=== PATIENT | male | born 1945 | race Caucasian/White ===

== ENCOUNTER 2017-08-19 06:07 | Emergency (ER) | payer MEDICARE, OTHER ==
[2017-08-19 06:40] LABS: #Basophils 0.1 thou/uL (0.0-0.2); #Eosinphils 0.2 thou/uL (0.0-0.7); #Lymphocytes 2.6 thou/uL (1.20-3.40); #Monocytes 0.9 thou/uL (0.11-0.59); #Neutrophils 4.2 thou/uL (1.40-6.50); %Basophils 0.9 % (0.0-1.0); %Eosinophils 2.5 % (0.0-10.0); %Monocytes 11.7 % (0.0-10.0); Hematocrit 54.2 % (42.0-52.0); Mean Platelet Volume 8.1 fL (7.4-10.4)
[2017-08-19 06:56] LABS: Anion Gap 12 mmol/L (10-20); BUN (Urea Nitrogen) 20 mg/dL (8.4-25.7); Calc. Creatinine Clearance 0 mL/min (70-130); Carbon Dioxide 25 mmol/L (23-31); Chloride 104 mmol/L (98-107); Estimated GFR-MDRD 72
[2017-08-19 07:16] LABS: Bilirubin Small (Negative); Blood, Urine Large (Negative); Glucose, Urine (Dipstick) Negative (Negative); Ketone, Urine Negative (Negative); Nitrite Negative (Negative); Protein, Urine (Dipstick) 30 mg/dL (Neg-Trace); Urobilinogen 0.2 mg/dL (0.2-1.0)
[2017-08-19 07:29] LABS: RBC/HPF GREATER THAN 50-TNTC HPF (0-3)
[2017-08-19 07:30] LABS: Bacteria/HPF 1+ HPF (None Seen); Hyaline Casts/LPF 0-3 HYALINE CAST LPF (0-3 Hyaline); WBC/HPF 0-3 HPF (0-3)
[2017-08-19] MEDS ORDERED: Nitrofurantoin Monohyd/M-Cryst 100 MG CAP PO SCH (07:45)
== END 2017-08-19 08:15 | disposition home or self-care (01) ==
LOC: ERS 06:07
DX: N39.0 Urinary tract infection, site not specified (principal); I10 Essential (primary) hypertension; E78.5 Hyperlipidemia, unspecified; M19.90 Unspecified osteoarthritis, unspecified site; Z79.82 Long term (current) use of aspirin; Z79.899 Other long term (current) drug therapy; Z87.891 Personal history of nicotine dependence
CPT/HCPCS: 36415; 80048; 81003; 81015; 85025; 87086; 99284

== ENCOUNTER 2017-10-03 10:03 | Outpatient (CLI) | payer MEDICARE, OTHER ==
[2017-10-03 11:19] LABS: Anion Gap 9 mmol/L (10-20); BUN (Urea Nitrogen) 17 mg/dL (8.4-25.7); Calc. Creatinine Clearance 0 mL/min (70-130); Calcium 9.6 mg/dL (7.8-10.44); Carbon Dioxide 28 mmol/L (23-31); Chloride 104 mmol/L (98-107); Estimated GFR-MDRD 78
[2017-10-03 11:23] LABS: Hematocrit 50.5 % (42.0-52.0); Mean Platelet Volume 8.4 fL (7.4-10.4); Red Blood Cell (RBC) Count 5.19 mill/uL (4.70-6.10); White Blood Cell (WBC) Count 8.2 thou/uL (4.8-10.8)
[2017-10-03 11:25] LABS: PTT 29.8 SEC (22.9-36.1); Prothrombin Time 13.4 SEC (12.0-14.7)
== END 2017-10-03 10:04 | disposition home or self-care (01) ==
LOC: LABBT 10:03
PROVIDERS: ATTEND Urology
DX: Z01.812 Encounter for preprocedural laboratory examination (principal); D49.4 Neoplasm of unspecified behavior of bladder
CPT/HCPCS: 80048; 85027; 85610; 85730

== ENCOUNTER 2017-10-07 05:54 | Day surgery (SDC) | payer MEDICARE, OTHER ==
[2017-10-03 10:23] VITALS: BMI 28.8
[2017-10-07] MEDS ORDERED: Fentanyl 100 MCG/2 ML VIAL ONE ×2 (06:25→11:57)
[2017-10-07] MEDS ORDERED: CEFAZOLIN/Water 2 GM/20 ML SYRINGE ONE (06:39)
[2017-10-07] MEDS ORDERED: PHENYLEPHRINE-NS 100 MCG/ML 10 ML SYRINGE ONE (08:46)
[2017-10-07] MEDS ORDERED: Propofol 200 MG/20 ML VIAL ONE (08:46)
[2017-10-07] MEDS ORDERED: Ondansetron HCl/PF 4 MG/2 ML Vial ONE (08:46)
[2017-10-07] MEDS ORDERED: Glycopyrrolate 0.2 MG/ML 5 ML SYRINGE ONE (08:46)
[2017-10-07] MEDS ORDERED: Lidocaine 1% PF 5 ML VIAL ONE (08:46)
[2017-10-07] MEDS ORDERED: cefTRIAXone\\ROCEPHIN 2 GM in Sodium Chloride 0.9% 100 ML IVPB ONE (10:15)
[2017-10-07] MEDS ORDERED: Iothalamate Meglumine 60% 50 ML VIAL FS ONE (10:29)
[2017-10-07] MEDS ORDERED: mitoMYcin 40 MG, Mitomycin 10 MG in Sodium Chloride 0.9% 50 ML I-VESIC SCH (11:00)
--- NOTE | 2017-10-07 13:07 | OP ---
DATE OF PROCEDURE: 10/07/2017 PREOPERATIVE DIAGNOSIS: Bladder tumors. hematuria. POSTOPERATIVE DIAGNOSIS: Bladder tumors, hematuria. PROCEDURE PERFORMED: Cysto, bilateral retrograde, TURBT. SURGEON: Dr. Guero Molina ANESTHETIC: General. ESTIMATED BLOOD LOSS: Minimal. FINDINGS: There were two 2 cm bladder tumors on the right wall adjacent to each other. There was a small papillary tumor lateral to the left ureteral orifice and another one lateral to the right urete ral orifices. These were not resected, but were cauterized. Path sent was superficial tumors right wall, the retrograde studies showed no persisting filling defect, some air bubbles on the left side a nd no evidence of obstruction to either ureter or tumor in either ureter, we did place 50 mg of mitom ycin C in 50 mL of normal saline at the end of the case and it was left in for about 30-40 minutes an d drained in recovery room. OPERATIVE TECHNIQUE: After obtaining written and verbal consent from the patient after receiving IV antibiotics, he was taken to the operating suite. He was placed in the supine position on the [facility] ent table. PlexiPulses were placed on his lower extremities and turned on. He was given a general a nesthetic, oral intubation. He was placed in the dorsal lithotomy position and sterilely prepped and draped. Cystoscopy was performed with a 22-Sudanese sheath. This was well lubricated and passed unde r direct vision through the male urethra into the urinary bladder with the aid of a 30-degree lens an d video camera and monitor. There was no evidence of urethral stricture disease. He is status post radical prostatectomy. Bladder was examined with a 30 and 70 degree lens with the findings above. A cone tip catheter 5 Sudanese was brought in, fluoroscopy unit was used and we did retrogrades to the right and then to the left ureter and upper collecting system by injecting contrast in a retrograde m jimmy, about 12 mL in each side and taking drainage. We then went ahead and removed these instrument s and passed a 24-Sudanese resectoscope sheath with the visual obturator and a 30 degree lens into the urinary bladder, used an OpenZine resectoscope with a gyrus generator and a bladder tumor loop resect ed the tumor down to the level of the wall, elliked out these, deep and then sent these off, cauteriz ed these areas and then cauterized the 2 small remaining tumors. The bladder was emptied. A Suazo c atheter was placed and mitomycin was placed, after it had been drained it was plugged. He was taken to the recovery room with it plugged. He was awakened and extubated and taken by stretcher to the re covery room.
--- NOTE | 2017-10-07 16:30 | RAD ---
RETROGRADE PYELOGRAM 3 VIEWS: Date: 10/07/17 HISTORY: 72-year-old male with hematuria. FINDINGS: Three fluoroscopic spot images obtained with C-arm. The first two images demonstrate contrast opacify ing nondilated left renal collecting system. The mid and lower pole calices are incompletely opacifie d. The final image demonstrates faint contrast in a nondilated right renal pelvis, but the calices ar e outside of the field of view. No images of the mid and lower ureters are available. IMPRESSION: 1. Incomplete visualization of bilateral renal collecting systems, especially the right. 2. No hydronephrosis. POS: [facility]
== END 2017-10-07 14:48 | disposition home or self-care (01) ==
LOC: SDC 05:54
PROVIDERS: ATTEND Urology
PROC: 0TBB8ZX Excision of Bladder, Via Natural or Artificial Opening Endoscopic, Diagnostic (ICD-10-PCS; principal; 2017-10-07)
PROC: 0TPB8JZ Removal of Synthetic Substitute from Bladder, Via Natural or Artificial Opening Endoscopic (ICD-10-PCS; 2017-10-07)
DX: C67.9 Malignant neoplasm of bladder, unspecified (principal); Z90.49 Acquired absence of other specified parts of digestive tract; Z98.890 Other specified postprocedural states; Z95.5 Presence of coronary angioplasty implant and graft
CPT/HCPCS: 52234; 74420; 88307; 96374; C1758; J9280 ×2; J0696; J2001; J2405; J2704; J3010; J7050; Q9961

== ENCOUNTER 2018-01-28 09:09 | Outpatient (CLI) | payer MEDICARE, OTHER ==
[2018-01-28 10:36] LABS: Hemoglobin 16.8 g/dL (14.0-18.0); Mean Corpuscular HGB CONC 33.2 g/dL (32.0-36.0); Mean Corpuscular Hemoglobin 32.2 pg (27.0-31.0); Mean Corpuscular Volume 97.1 fl (80.0-94.0); Platelet Count 240 thou/uL (130-400); RBC Distribution Width 11.6 % (11.5-14.5); White Blood Cell (WBC) Count 8.4 thou/uL (4.8-10.8)
[2018-01-28 11:46] LABS: Prothrombin Time 13.2 SEC (12.0-14.7)
[2018-01-28 11:47] LABS: PTT 25.3 SEC (22.9-36.1)
== END 2018-01-28 09:10 | disposition home or self-care (01) ==
LOC: LABBT 09:09
PROVIDERS: ATTEND Urology
DX: Z01.812 Encounter for preprocedural laboratory examination (principal); C67.9 Malignant neoplasm of bladder, unspecified
CPT/HCPCS: 85027; 85610; 85730

== ENCOUNTER 2018-02-03 07:43 | Day surgery (SDC) | payer MEDICARE, OTHER ==
[2018-01-28 09:46] VITALS: BMI 29.5
[2018-02-03] MEDS ORDERED: CEFAZOLIN/Water 2 GM/20 ML SYRINGE ONE (08:40)
[2018-02-03] MEDS ORDERED: Iothalamate Meglumine 60% 50 ML VIAL FS ONE (10:25)
[2018-02-03] MEDS ORDERED: Fentanyl 100 MCG/2 ML VIAL ONE (10:31)
[2018-02-03] MEDS ORDERED: Famotidine/PF 20 mg/2ml Vial ONE (10:31)
--- NOTE | 2018-02-03 11:40 | OP ---
DATE OF PROCEDURE: 02/03/2018 PREOPERATIVE DIAGNOSES: History of TCC. POSTOPERATIVE DIAGNOSIS: History of TCC. PROCEDURE PERFORMED: Cysto, bilateral retrograde and pyelograms and bladder biopsy. SURGEON: Dr. Guero Molina ANESTHETIC: General. ESTIMATED BLOOD LOSS: Minimal. Biopsies taken from the old tumor site as well as random biopsies. Retrograde study showed no eviden ce of filling defects or abnormality. There is no obvious bladder tumor seen. OPERATIVE TECHNIQUE: After obtaining written and verbal consent from the patient after receiving IV antibiotics, he was taken to the operating suite. He was placed in supine position on the treatment table. PlexiPulses placed on his lower extremities and turned on. He was given a general anesthetic , oral obturator intubation which was then switched to oral intubation. He has a little bit of troub le with coughing from this. He was then placed in dorsal lithotomy position, sterilely prepped and d raped. Cystoscopy was performed with a 22-Bhutanese sheath. This was well lubricated, passed under dir ect vision through the male urethra into the urinary bladder with aid of a 30-degree lens and video c amera and monitor. The bladder was filled and emptied a number of times and examined both 30 and 70 lens. A 5 Bhutanese Pollack catheter was flushed with contrast, a juice tester KUB was taken with fluoroscopy unit. Left retrograde and right retrograde studies were done by injecting about 10-12 mL of contrast up both sides as fluoroscopic images were obtained and then saved. At the end of the procedure penny nagromy films were done also. They drained well. The bladder was then biopsied using cold cup biopsy f orceps and then cauterized with a Bugbee electrode of the biopsy sites included the tumor site from t he right wall as well as some random bladder biopsy sites. There was no evidence of recurrent bladde r tumor. At the end of the procedure the instruments were removed. Suazo catheter was not placed. He was awakened, extubated, and taken by stretcher to the recovery room.
--- NOTE | 2018-02-03 11:47 | RAD ---
RETROGRADE IVP: COMPARISON: 10/07/17. HISTORY: Hematuria. FINDINGS/IMPRESSION: A retrograde IVP was submitted for interpretation. Limited fluorosocpic images were provided. A special education educational assistant image shows no calcifications overlying either renal collecting system. There are surgical c lips in the pelvis. Contrast is eventually seen in both renal collecting systems without filling def ects. No hydronephrosis is seen. POS: [facility]
[2018-02-03] MEDS ORDERED: PROPOFOL 200 MG/20 ML VIAL ONE (15:50)
[2018-02-03] MEDS ORDERED: Lidocaine 1% PF 5 ML VIAL ONE (15:50)
[2018-02-03] MEDS ORDERED: Glycopyrrolate 0.2 MG/ML 5 ML SYRINGE ONE (15:50)
[2018-02-03] MEDS ORDERED: Ondansetron HCl/PF 4 MG/2 ML Vial ONE (15:50)
== END 2018-02-03 12:40 | disposition home or self-care (01) ==
LOC: SDC 07:43
PROVIDERS: ATTEND Urology
PROC: 0TBB8ZX Excision of Bladder, Via Natural or Artificial Opening Endoscopic, Diagnostic (ICD-10-PCS; principal; 2018-02-03)
DX: N30.20 Other chronic cystitis without hematuria (principal); Z85.51 Personal history of malignant neoplasm of bladder; Z90.79 Acquired absence of other genital organ(s); Z98.890 Other specified postprocedural states
CPT/HCPCS: 74420; 88305; C1758; J2001; J2405; J2704; J3010; Q9961; S0028

== ENCOUNTER 2018-10-11 09:35 | Emergency (ER) | payer MEDICARE, OTHER ==
--- NOTE | 2018-10-11 11:11 | RAD ---
PA AND LATERAL VIEWS OF CHEST: Date: 10/11/18 HISTORY: Cough, fever. FINDINGS: The heart size is borderline. There is evidence of old granulomatous disease. No focal areas of conso lidation, pneumothoraces, or pleural effusions seen. There are degenerative changes in the spine. IMPRESSION: No radiographic evidence of acute cardiopulmonary process. POS: [facility]
== END 2018-10-11 11:38 | disposition home or self-care (01) ==
LOC: SCSER 09:35
DX: J32.9 Chronic sinusitis, unspecified (principal); M10.9 Gout, unspecified; E78.2 Mixed hyperlipidemia; I10 Essential (primary) hypertension; Z79.899 Other long term (current) drug therapy; Z79.82 Long term (current) use of aspirin
CPT/HCPCS: 71046; 87804

== ENCOUNTER 2020-03-04 08:55 | Outpatient (CLI) | payer MEDICARE, OTHER ==
[2020-03-04] MEDS ORDERED: Magnevist 469MG/ML 20 ML VIAL ONE (10:12)
--- NOTE | 2020-03-04 14:43 | MRI ---
MRI OF THE LUMBAR SPINE WITH AND WITHOUT IV CONTRAST : INDICATION: History of low back pain with radiculopathy affecting the left lower extremity. CONTRAST: 20 cc of MultiHance. COMPARISON: Prior MRI of the lumbar spine dated 04/07/2012. FINDINGS: There is postprocedural change of laminectomies at L4-5. The visualized retroperitoneum appears within normal limits. Bone marrow signal intensity appears wi thin normal limits. There is mild aneurysmal dilatation of the infrarenal abdominal aorta measuring up to 3.7 cm. There is aneurysmal dilatation of the left common iliac artery measuring up to 2.3 cm. The conus is seen to terminate at approximately L1. There is very subtle grade I anterolisthesis of L4 on L5 which is stable-appearing. At L5-S1, there is a broad-based disk bulge with facet hypertrophy and loss of disk space height adrián cing mild bilateral neural foraminal narrowing which appears stable to the prior exam. At L4-5, there is a residual broad-based bulge with facet hypertrophy inducing moderate to severe ko tral canal narrowing. This is mildly improved from the comparison examination. There is moderate ri ght and severe left neural foraminal narrowing that has progressed from the prior examination. There is a new left foraminal disk protrusion that is inducing the more severe neural foraminal narrowing now present, best seen on image 22 of series 5 measuring 1.4 cm. At L3-4, there is a broad-based bulge with facet hypertrophy and ligamentum flavum hypertrophy induci ng mild central canal narrowing. This has progressed from the prior examination due to facet hypertr ophy and the mild broad-based bulge. There is mild neural foraminal narrowing bilaterally which has mildly progressed. At L2-3, there is a broad-based bulge with facet hypertrophy inducing mild central canal and mild alejandrina ateral neural foraminal narrowing which has mildly progressed from the prior exam. At L1-2, there is a broad-based bulge with facet hypertrophy but no appreciable central canal or neur al foraminal narrowing. At LT12-L1, there is no appreciable central canal or neural foraminal narrowing. No abnormal enhancement is grossly evident. IMPRESSION: 1. Interval laminectomies at L4-5 improving the central canal narrowing; however, there is residual moderate to severe central canal narrowing at L4-5. 2. New left foraminal disk protrusion causing severe narrowing of the left L4-5 neural foramen with probable impingement of the exiting left L4 nerve. 3. Worsening central canal and neural foraminal narrowing at L3-4 and L2-3. 4. 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 A followup CTA of the abdomen and pelvis is recommended for i mproved characterization. CODE T POS: [facility]
== END 2020-03-04 08:56 | disposition home or self-care (01) ==
LOC: BICMRI 08:55
PROVIDERS: ATTEND Physician Assistant Medical
DX: M51.16 Intervertebral disc disorders with radiculopathy, lumbar region (principal); M48.061 Spinal stenosis, lumbar region without neurogenic claudication; I71.4 Abdominal aortic aneurysm, without rupture; I72.3 Aneurysm of iliac artery; Z98.890 Other specified postprocedural states
CPT/HCPCS: 72158; A9579

== ENCOUNTER 2020-03-11 10:00 | Outpatient (CLI) | payer MEDICARE, OTHER ==
[2020-03-11 10:32] LABS: Estimated GFR-MDRD - POC Greater than 90
--- NOTE | 2020-03-11 12:16 | CT ---
CT AORTOGRAM ABDOMEN AND PELVIS WITH CONTRAST: Axial tomograms obtained with multiplanar reconstruction and 3D postprocessing following aortogram pr otocol. INDICATION: Follow-up abdominal aortic aneurysm incidentally noted on MRI of lumbar spine. FINDINGS: There are atherosclerotic changes involving the abdominal aorta. Aneurysmal dilatation of the distal abdominal aorta is noted. There is peripheral thrombus which results in irregular lumen. There is carmelo dence of a focal dissection with a small area of false lumen in the distal abdominal aorta extending to the bifurcation. Maximum diameter measured in the AP dimension is 3.5 cm. This aneurysm extends to the bifurcation and there is mild aneurysmal dilatation of both common iliac arteries, more pronounc ed on the left. The left common iliac artery measures up to 2.5 cm diameter. The right common iliac a rtery measures up to 1.6 cm diameter. The internal and external iliacs appear patent and unremarkable. The visualized common femoral and pr ofunda femoral arteries are patent. The proximal superficial femoral arteries are visualized and appe ar unremarkable. No evidence of stenosis involving the origin of the celiac artery or the superior mesenteric artery. No evidence of renal artery stenosis. There are two left renal arteries noted. Soft Tissues: Lung bases are clear with chronic parenchymal change. Calcified granuloma in right donta g base. Liver, spleen, and pancreas are unremarkable. There is a right adrenal nodule which measures up to 1.5 cm. This nodule is indeterminate on this sin gle phase study. Left adrenal unremarkable. Kidneys unremarkable. Motion artifact does degrade renal evaluation. However, no evidence of renal ma ss or hydronephrosis. Visualized bowel loops unremarkable. Diverticulosis of the sigmoid. No adenopathy. The urinary bladde r is mildly distended and unremarkable. IMPRESSION: 1. Atherosclerotic changes involving the abdominal aorta with aneurysmal dilatation of the distal ab dominal aorta. Peripheral thrombus results in irregular lumen and there is evidence of focal dissecti on of the distal abdominal aorta with a small area of false lumen. Aneurysmal dilatation extends into both common iliac arteries, more prominent on the left as described above. 2. There is an indeterminate right adrenal nodule measuring 1.5 cm. A follow-up pre and postcontrast CT abdomen within 6 months is suggested to confirm stability and to further characterize this adrena l nodule. POS: [facility]
== END 2020-03-11 10:01 | disposition home or self-care (01) ==
LOC: CT 10:00
PROVIDERS: ATTEND Physician Assistant Medical
DX: I71.4 Abdominal aortic aneurysm, without rupture (principal); I70.0 Atherosclerosis of aorta; I72.3 Aneurysm of iliac artery; I71.02 Dissection of abdominal aorta
CPT/HCPCS: 74174; 82565

== ENCOUNTER 2020-04-07 06:36 | Outpatient (CLI) | payer MEDICARE, OTHER ==
[2020-04-07 16:05] LABS: Hemoglobin 16.4 g/dL (14.0-18.0); Mean Corpuscular HGB CONC 33.3 g/dL (32.0-36.0); Mean Corpuscular Hemoglobin 31.8 pg (27.0-31.0); Mean Corpuscular Volume 95.6 fL (78.0-98.0); Mean Platelet Volume 8.2 fL (7.4-10.4); Platelet Count 210 thou/uL (130-400); RBC Distribution Width 12.1 % (11.5-14.5); Red Blood Cell (RBC) Count 5.15 mill/uL (4.70-6.10)
[2020-04-07 16:11] LABS: Anion Gap 14 mmol/L (10-20); BUN (Urea Nitrogen) 15 mg/dL (8.4-25.7); Calc. Creatinine Clearance 0 mL/min (70-130); Calcium 9.7 mg/dL (7.8-10.44); Carbon Dioxide 24 mmol/L (23-31); Chloride 104 mmol/L (98-107); Estimated GFR-MDRD 68; Glucose 114 mg/dL (83-110); Potassium 4.2 mmol/L (3.5-5.1); Sodium 138 mmol/L (136-145)
[2020-04-08 14:25] LABS: SARS-CoV-2 MS2 Positive; SARS-CoV-2 N Gene Negative; SARS-CoV-2 S Gene Negative; SARS-CoV-2 orf1ab Negative
== END 2020-04-07 06:37 | disposition home or self-care (01) ==
LOC: LABBT 06:36
PROVIDERS: ATTEND Neurological Surgery
DX: Z01.818 Encounter for other preprocedural examination (principal); Z11.59 Encounter for screening for other viral diseases; M54.16 Radiculopathy, lumbar region
CPT/HCPCS: 80048; 85027; U0003; 87635

== ENCOUNTER 2020-04-12 10:17 | Day surgery (SDC) | payer MEDICARE, OTHER ==
[2020-04-06 11:50] VITALS: BMI 30.8
--- NOTE | 2020-04-11 21:55 | HP ---
HISTORY OF PRESENT ILLNESS: Mr. Connor is a pleasant 75-year-old man referred to us for evaluation of lower back pain, left upper extremity pattern of L4 and L5 radicular symptoms. He also reports numbness currently in the lower left leg, particularly at night when walking. His primary care physician has been caring for this and started on gabapentin, Medrol, which seems to have some modest improvement in his symptoms since that time. Recent MRI from [place] reveals some postoperative changes from a remote lumbar decompression performed by Dr. Tam, but of note, also a large left lateral disk herniation at L4-5 that extends to the left L4 foramen causing both severe foraminal and lateral recess at that level. PHYSICAL EXAMINATION: The patient is alert and oriented x3. Gait is mildly antalgic. Lower extremity motor exam is normal. PAST MEDICAL HISTORY: Hypertension, gout, diabetes, coronary artery disease, COPD, bladder cancer, and prostate cancer. MEDICATIONS: 1. Advair. 2. Prednisone. 3. Naproxen. 4. Omeprazole. 5. Albuterol. 6. Gabapentin. 7. Montelukast. 8. Aspirin. 9. Ezetimibe. 10. Toprol. 11. Allopurinol. 12. Enalapril. 13. Livalo. PAST SURGICAL HISTORY: Lumbar laminectomy. ALLERGIES: NO KNOWN DRUG ALLERGIES. ASSESSMENT: Lumbar disk herniation with radiculopathy. PLAN: Dr. Collier met with the patient, reviewed imaging, and advocated for L4 diskectomy. He explained to the patient the risks, benefits, and alternatives to the procedure. The patient expressed understanding and elected to move forward with surgery as discussed. I do believe that the patient is mentally competent and capable of making medical decisions for himself. We will move forward with surgery as planned. Job ID: [id number]
[~2020-04-12 10:17] MED LIST: Albuterol Sulfate HFA (OR ONLY) ONE; Dexamethasone 20 MG/5 ML VIAL ONE; Ketorolac Tromethamine 30 MG/ML VIAL ONE; Labetalol HCl 100 MG/20 ML VIAL ONE; Ondansetron PF 4 MG/2 ML Vial ONE; PROPOFOL 200 MG/20 ML VIAL ONE; Rocuronium Bromide 10 MG/ML (10ML VIAL) ONE
[2020-04-12] MEDS ORDERED: Bupivacaine PF 0.5% 30 ML VIAL ONE (12:30)
[2020-04-12] MEDS ORDERED: EPINEPHrine 1 MG/ML AMP ONE (12:30)
[2020-04-12] MEDS ORDERED: Fentanyl 100 MCG/2 ML VIAL ONE (12:58)
[2020-04-12] MEDS ORDERED: SUGAMMADEX SODIUM 200 MG/2 ML VIAL ONE (14:14)
[2020-04-12] MEDS ORDERED: hydrALAZINE 20 MG/ML VIAL ONE (14:34)
[2020-04-12] MEDS ORDERED: Tamsulosin HCl 0.4 MG CAP ONE (14:55)
[2020-04-12] MEDS ORDERED: HYDROcodone/Acetaminophen 5/325 mg Tablet ONE (15:47)
--- NOTE | 2020-04-13 12:57 | OP ---
DATE OF PROCEDURE: 04/12/2020 NEWSPAPER CARRIER: Dayton Mohan PA-C INDICATION: Pain. DIAGNOSIS: Lumbar radiculopathy. PROCEDURE PERFORMED: Left L4 diskectomy. ANESTHESIA: General. DESCRIPTION OF PROCEDURE: The patient was brought into the operating room and placed under general anesthesia. He was flipped from the supine to prone position on operating room table. A linear incision was planned over the L4-L5 segment. After prepping and draping and after an appropriate preoperative pause, the incision was created. The soft tissues were swept left of midline. A self-retaining retractor was placed in the wound for optimal exposure. After confirming the appropriate level with C-arm fluoroscopy, high-speed cutting drill bit as well as 2, 3, and 4 mm Kerrisons were used to perform a laminectomy along the inferior aspect of L4 and the superior aspect of L5. The descending L5 nerve root was identified and mobilized medially. The disk material was identified and removed until the descending L5 nerve root was decompressed. The wound was then irrigated. Hemostasis was maintained throughout. The wound was then closed in anatomic layers, and a pressure dressing was applied. There were no known procedural complications. Job ID: [id number]
== END 2020-04-12 18:17 | disposition home or self-care (01) ==
LOC: SDC 10:17
PROVIDERS: ATTEND Neurological Surgery
PROC: 0SB20ZZ Excision of Lumbar Vertebral Disc, Open Approach (ICD-10-PCS; principal; 2020-04-12)
PROC: 01NB0ZZ Release Lumbar Nerve, Open Approach (ICD-10-PCS; 2020-04-12)
DX: M51.16 Intervertebral disc disorders with radiculopathy, lumbar region (principal); M48.061 Spinal stenosis, lumbar region without neurogenic claudication; I10 Essential (primary) hypertension; M10.9 Gout, unspecified; E11.9 Type 2 diabetes mellitus without complications; I25.10 Atherosclerotic heart disease of native coronary artery without angina pectoris; J44.9 Chronic obstructive pulmonary disease, unspecified; Z79.82 Long term (current) use of aspirin; Z79.899 Other long term (current) drug therapy; Z95.5 Presence of coronary angioplasty implant and graft
CPT/HCPCS: 76000; J0171; J0360; J0690; J1100; J1885; J2405; J2704; J3010; S0020

== ENCOUNTER 2020-10-10 08:53 | Outpatient (CLI) | payer MEDICARE, OTHER ==
--- NOTE | 2020-10-10 09:40 | RAD ---
Pa and lateral chest: HISTORY: Dyspnea. COMPARISON: 11/30/2019 exam. FINDINGS: Heart size is within normal limits. Calcified granuloma is seen in the left lung. There is some mil d chronic lung change. No focal infiltrative process. IMPRESSION: Stable chest. POS: [facility]
== END 2020-10-10 08:54 | disposition home or self-care (01) ==
LOC: BICRAD 08:53
PROVIDERS: ATTEND Internal Medicine Critical Care Medicine
DX: R06.00 Dyspnea, unspecified (principal)
CPT/HCPCS: 71046